=== PATIENT | male | born 1985 | race Caucasian/White ===

== ENCOUNTER → 2023-06-25 | Emergency (ER) | payer BC, OTHER ==
[~2023-06-25] MED LIST: KETOROLAC 30 MG/ML INJ ONE; dexAMETHasone 10 MG/ML VIAL ONE
[2023-06-25 15:49] LABS: Specific Gravity 1.024 (1.005-1.030); Urine Bilirubin NEGATIVE (Negative); Urine Blood Negative (Negative); Urine Clarity Clear (Clear); Urine Color Light-Yellow (Yellow); Urine Glucose NEGATIVE (Negative); Urine Protein NEGATIVE (Negative); Urine Urobilinogen Normal (Normal); Urine pH 6.5 (5.0-7.0)
--- NOTE | 2023-06-25 15:59 | ER ---
Nurse's Notes [facility] Name: Pelon Sterling Age: 38 yrs Sex: Male : 1985 Arrival Date: 06/25/2023 Time: 15:04 Bed 11 Private MD: Diagnosis: Low back pain Presentation: 06/25 15:11 Chief complaint: Patient states: SEVERE LOWER BACK PAIN WITH STANDING. STATES PAIN db RADIATES DOWN RIGHT LEG. AMBULATORY IN TRIAGE. Coronavirus screen: Client denies travel out of the [place] in the last 14 days. At this time, the client does not indicate any symptoms associated with coronavirus-19. Ebola Screen: Patient negative for fever greater than or equal to 101.5 degrees Fahrenheit, and additional compatible Ebola Virus Disease symptoms Patient denies exposure to infectious person. Patient denies travel to an Ebola-affected area in the 21 days before illness onset. No symptoms or risks identified at this time. Initial Sepsis Screen: Does the patient meet any 2 criteria? No. Patient's initial sepsis screen is negative. Does the patient have a suspected source of infection? No. Patient's initial sepsis screen is negative. Risk Assessment: Do you want to hurt yourself or someone else? Patient reports no desire to harm self or others. Onset of symptoms was June 25, 2023. 15:11 Method Of Arrival: Ambulatory db 15:11 Acuity: RADHA 3 db Triage Assessment: 15:11 General: Appears in no apparent distress. comfortable, Behavior is calm, cooperative. db Pain: Complains of pain in back Pain radiates to right leg. Neuro: Level of Consciousness is awake, alert, obeys commands, Oriented to person, place, time, situation, Speech is normal. Respiratory: Airway is patent Respiratory effort is even, unlabored, Respiratory pattern is regular, symmetrical. Historical: - Allergies: 15:12 No Known Allergies; db - PMHx: 15:12 Seizures; db - Immunization history:: Adult Immunizations unknown. - Social history:: Smoking status: Patient denies any tobacco usage or history of. Screenin:23 [facility] ED Fall Risk Assessment (Adult) History of falling in the last 3 months, db including since admission No falls in past 3 months (0 pts) Confusion or Disorientation No (0 pts) Intoxicated or Sedated No (0 pts) Impaired Gait No (0 pts) Mobility Assist Device Used No (0 pt) Altered Elimination No (0 pt) Score/Fall Risk Level 0 - 2 = Low Risk Oriented to surroundings, Maintained a safe environment. Abuse screen: Denies threats or abuse. Denies injuries from another. Nutritional screening: No deficits noted. Tuberculosis screening: No symptoms or risk factors identified. Assessment: 15:23 Reassessment: Patient appears in no apparent distress at this time. Patient and/or db family updated on plan of care and expected duration. Pain level reassessed. Patient is alert, oriented x 3, equal unlabored respirations, skin warm/dry/pink. General: Appears in no apparent distress. comfortable, Behavior is calm, cooperative. Pain: Complains of pain in right leg and back. Neuro: Level of Consciousness is awake, alert, obeys commands, Oriented to person, place, time, situation. 15:45 Reassessment: Patient appears in no apparent distress at this time. Patient and/or ph family updated on plan of care and expected duration. Pain level reassessed. Patient is alert, oriented x 3, equal unlabored respirations, skin warm/dry/pink. Vital Signs: 15:11 BP 152 / 95; Pulse 86; Resp 18; Temp 98.2; Pulse Ox 100% ; Weight 113.4 kg; Height 5 db ft. 11 in. ; 15:11 Body Mass Index 34.87 (113.40 kg, 180.34 cm) db ED Course: 15:07 Patient arrived in ED. im 15:07 [facility]C [facility]. kb 15:07 Tavo Eubanks DO is Attending Physician. kb 15:12 Triage completed. db 15:13 Arm band placed on Patient placed in an exam room. db 15:19 Kimberlee Coronado, RN is Primary Nurse. ph 15:24 No provider procedures requiring assistance completed. db 15:45 Urinalysis w/ reflexes Sent. ph 16:21 Patient has correct armband on for positive identification. Bed in low position. Call light in reach. Side rails up X 1. 16:25 Patient did not have IV access during this emergency room visit. ph Administered Medications: 15:20 Drug: Ketorolac IM 30 mg IM once Route: IM; Site: right deltoid; db 16:25 Follow up: Response: No adverse reaction ph 15:22 Drug: Dexamethasone IM 10 mg IM once Route: IM; Site: left deltoid; db 16:25 Follow up: Response: No adverse reaction ph Medication: 15:23 VIS not applicable for this client. db Outcome: 15:58 Discharge ordered by . kb 16:21 Discharged to home ambulatory, with significant other, ph 16:21 Condition: good 16:21 Discharge instructions given to patient, Instructed on discharge instructions, follow up and referral plans. medication usage, Demonstrated understanding of instructions, follow-up care, medications, Prescriptions given X 3, 16:25 Patient left the ED. ph Signatures: Claudia Pina, URBAN GARDENING SPECIALIST-C URBAN GARDENING SPECIALIST-Kimberlee Levy RN RN ph America Messina, RN RN db Kitty Sen Corrections: (The following items were deleted from the chart) 15:13 15:11 BP 152 / 95; Pulse 86bpm; Resp 18bpm; Pulse Ox 100%; Temp 98.2F; db db 15:13 15:11 Acuity: RADHA 4 db db
--- NOTE | 2023-06-25 15:59 | EDPHYS ---
Physician Documentation [facility] Name: Pelon Sterling Age: 38 yrs Sex: Male : 1985 Arrival Date: 06/25/2023 Time: 15:04 Bed 11 Private MD: ED Physician Tavo Eubanks HPI: 06/25 16:00 This 38 yrs old Male presents to ER via Ambulatory with complaints of Low Back Pain. kb 16:00 Pt is a 38 year old male who presents with low back pain worse on the right that kb started 2-3 weeks ago and has gotten worse and more constant. Denies urinary symptoms, n/v/d, fever, numbness, tingling. Reports radiation of pain down right thigh. . Historical: - Allergies: 15:12 No Known Allergies; db - PMHx: 15:12 Seizures; db - Immunization history:: Adult Immunizations unknown. - Social history:: Smoking status: Patient denies any tobacco usage or history of. ROS: 15:59 Constitutional: Negative for fever, chills, and weight loss, kb 15:59 Back: Positive for pain at rest, pain with movement, radiated pain, 15:59 All other systems are negative, Exam: 15:59 Constitutional: This is a well developed, well nourished patient who is awake, alert, kb and in no acute distress. Head/Face: Normocephalic, atraumatic. ENT: Moist Mucous membranes Cardiovascular: Regular rate Respiratory: Respirations even and unlabored. No increased work of breathing. Talking in full sentences Abdomen/GI: Soft, non-tender. No distention Skin: Warm, dry with normal turgor. Normal color. MS/ Extremity: Pulses equal, no cyanosis. Neurovascular intact. Full, normal range of motion. Neuro: Awake and alert, GCS 15, oriented to person, place, time, and situation. Moves all extremities. Normal gait. 15:59 Back: pain, that is mild, of the right low back, ROM is normal, normal spinal alignment noted, CVA tenderness, is absent, Vital Signs: 15:11 BP 152 / 95; Pulse 86; Resp 18; Temp 98.2; Pulse Ox 100% ; Weight 113.4 kg; Height 5 db ft. 11 in. ; 15:11 Body Mass Index 34.87 (113.40 kg, 180.34 cm) db MDM: 15:07 Patient medically screened. kb 15:59 Differential diagnosis: arthritis, strain, sciatica, Herniated disc UTI. Data reviewed: kb vital signs, nurses notes. Test considered but Not performed: X-ray: x-ray considered, but pt has no bony tenderness, no injury. Counseling: I had a detailed discussion with the patient and/or guardian regarding the historical points, exam findings, and any diagnostic results supporting the discharge/admit diagnosis, lab results, the need for outpatient follow up, a family practitioner, to return to the emergency department if symptoms worsen or persist or if there are any questions or concerns that arise at home. 06/25 15:14 Order name: Urinalysis w/ reflexes; Complete Time: 15:49 kb Administered Medications: 15:20 Drug: Ketorolac IM 30 mg IM once Route: IM; Site: right deltoid; db 16:25 Follow up: Response: No adverse reaction ph 15:22 Drug: Dexamethasone IM 10 mg IM once Route: IM; Site: left deltoid; db 16:25 Follow up: Response: No adverse reaction ph Disposition: 16:41 I was immediately available on-site in the Emergency Department for consultation in the ms3 care of the patient. Disposition Summary: 06/25/23 15:58 Discharge Ordered Notes: Location: Home kb Condition: Stable kb Diagnosis - Low back pain kb Followup: kb - With: Emergency Department - When: As needed - Reason: Worsening of condition Followup: kb - With: Private Physician - When: 2 - 3 days - Reason: Recheck today's complaints, Continuance of care, Re-evaluation by your physician Discharge Instructions: - Discharge Summary Sheet kb - Acute Back Pain, Adult kb - Musculoskeletal Pain kb Forms: - Medication Reconciliation Form kb - Thank You Letter kb - Antibiotic Education kb - Prescription Opioid Use kb - Patient Portal Instructions kb - Leadership Thank You Letter kb Prescriptions: - Prednisone 20 mg Oral Tablet - take 1 tablet ORAL route once daily for 5 days; 5 tablet; Refills: 0, Product kb Selection Permitted - Diclofenac Sodium 75 mg Oral tablet, delayed release (enteric coated) - take 1 tablet ORAL route 2 times per day As needed; 30 tablet; Refills: 0, kb Product Selection Permitted - orphenadrine citrate 100 mg Oral Tablet Sustained Release - take 1 tablet ORAL route 2 times per day As needed; 20 tablet; Refills: 0, kb Product Selection Permitted Signatures: Dispatcher [employer] Claudia Tena, DRAFTING LAYOUT WORKER-C DRAFTING LAYOUT WORKER-Tavo Vela DO DO ms3 America Messina, RN RN db Kimberlee Coronado RN ph
[2023-06-25 16:51] VITALS: BP 152/95; TEMP 98.2; O2SAT 100
== END ==
LOC: ER 15:04
DX: M54.50 Low back pain, unspecified (principal)
CPT/HCPCS: 81003; J1100

== ENCOUNTER 2025-01-20 06:51 | Emergency (ER) | payer OTHER ==
--- OUTSIDE RECORDS SUMMARY | 2025-01-20 06:56 | XMS REPORT | Continuity of Care Document ---
Author Name Unknown Address [address] [facility] [address] [place] [address] [facility] Address [address] [facility] [address] [place] [address] Care Team Providers Care E Commerce Director Name Role Phone Kyle FISH, Jen Jaramillo Primary Care Physician KALYAN ROLLE Attending Clinician Dulce Arnol Toribio MD Attending Clinician [phone] ARNOL GERMAN Attending Clinician Unavail able ARNOL GERMAN Attending Clinician Unavail able Dorcas Rodrigues LVN Attending Clinician UnavailBhavya Small MA Attending Clinician UnavailArnol Montenegro MD Attending Clinician [phone] Hal Segura MD Attending Clinician [phone] Colleen Mcgrath Attending Clinician [phone] Unknown, Attending Attending Clinician Unavailab COLLEEN Guthrie Attending Clinician Unavailable Doctor Unassigned, [place] Attending Clinician U margotailRENNY Skinner Attending Clinician Unavailable Renny Velazquez DO Attending Clinician [phone] JEN PIZARRO Attending Clinician Gisella Pizarro MD, Jen Jaramillo Attending Clinician [phone] Juan A KAHN, Christopher Attending Clinician Unavailab le Only, Ang Db Test Attending Clinician UnavailGabi SALCIDO, Gerardo Attending Clinician GERARDO BLAIR Attending Clinician Unavailable Payers Payer Name Policy Type Policy Number Effective Date Expirati on Date Source [facility] [id number] 2024 00:00:00 [employer] [id number] 2023 00:00:00 [employer] [id number] [id number] 2022 00:00:00 Problems Condition Name Condition Details Condition Category Status Onset Date Resolution Date Last Treatment Date Treating Clinician Comments Source Paresthesi a Paresthesi a Disease Active 09-17 00:00: 00 [facility] [place] [facility] Cervical radiculopa thy Cervical radiculopa thy Disease Active 09-17 00:00: 00 [facility] [place] Epic Infected sebaceous cyst of skin Infected sebaceous cyst of skin Disease Active 2021-05 2-29 00:00: 00 Amber Seybold - Externa l Seizure disorder Seizure disorder Disease Active 09-07 00:00: 00 Amber Seybold - Externa l Acute pharyngiti s due to other specified organisms Acute pharyngiti s due to other specified organisms Disease Active 09-07 00:00: 00 Amber Seybold - Externa l Seasonal allergic rhinitis due to pollen Seasonal allergic rhinitis due to pollen Disease Active 09-07 00:00: 00 Amber Seybold - Externa l 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, intractabl e, without status epilepticu s 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, intractabl e, without status epilepticu s Disease Active 01-30 00:00: 00 [facility] Postoperat dawson abdominal pain Postoperat dawson abdominal pain Disease Active 2014-05 0 00:00: 00 [facility] Abnormal involuntar y movements Abnormal involuntar y movements Disease Active 09-28 00:00: 00 Melly Morrow No known active problems No known active problems Disease Amber Ruano Allergies, Adverse Reactions, Alerts Allergy Name Allergy Type Status Severity Reaction(s) Onset Date Inactive Date Treating Clinician Comments Source Eslicarb azepine Allergy to substanc e Active 09-17 00:00: 00 Melly Jessica [facility] ESLICARB AZEPINE DRUG INGREDI Active Med Unknown-Cmnt 09-07 00:00: 00 [facility] Eslicarb azepine Propensi ty to adverse reaction s Active Unknown - See comments 09-07 00:00: 00 [facility] Eslicarb azepine Propensi ty to adverse reaction s Active 09-07 00:00: 00 Amber Ruano Eslicarb azepine Propensi ty to adverse reaction s Active 09-07 00:00: 00 Amber Ruano - Externa l NO KNOWN ALLERGIE S Drug Class Active [facility] Aptiom Aptiom Active Moderate Melly Jessica Social History Social Habit Start Date Stop Date Quantity Comments Source Gender identity 2023-07-27 08:15:50 Identifies as male gender (finding) [facility] Exposure to SARS-CoV-2 (event) Not sure Amber mendoza Sexual orientation [facility] Alcoholic beverage intake 2023-11-18 00:00:00 2023-11-18 00:00:00 Current non-drinker of alcohol (finding) [facility] History of Social function 2022-10-17 00:00:00 2022-10-17 00:00:00 [facility] Alcohol intake 2022-05-03 00:00:00 2022-05-03 00:00:00 Lifetime non-drinker (finding) Amber Ruano - External Education 2021-09-07 00:00:00 2021-09-07 00:00:00 17 Amber Ruano - External Tobacco use and exposure 2015-02-22 00:00:00 2015-02-22 00:00:00 Smokeless tobacco non-user [facility] Sex Assigned At 1985 00:00:00 1985 00:00:00 Amber Reinososourav - External Smoking Status Start Date Stop Date Source Never smoked tobacco Melly Morrow Medications Ordered Medication Name Filled Medication Name Start Date Stop Date Current Medication? Ordering Clinician Indication Dosage Frequency Signature (SIG) Comments Components Source lamoTRIgine 200 mg tablet 11-17 00:00: 00 Yes [id number] 200mg Take 1 tablet by mouth in the morning and 1 tablet in the evening. [facility] lamoTRIgine 200 mg tablet 12-15 00:00: 00 11-17 00:00 :00 No [id number] 200mg Take 1 tablet by mouth in the morning and 1 tablet in the evening. [facility] Cetirizine (ZYRTEC) 10 mg capsule 11-17 08:38: 24 11-17 00:00 :00 No 10mg Take 1 capsule by mouth as needed for Allergies. [facility] fexofenadin e 180 mg tablet 11-17 08:38: 12 11-17 00:00 :00 No 180mg Take 1 tablet by mouth in the morning. [facility] phenytoin Extended (DILANTIN) 100 mg capsule 11-17 07:51: 46 11-17 00:00 :00 No 200mg Take 200 mg by mouth 2 (two) times daily. [facility] lamoTRIgine 200 mg tablet 11-17 00:00: 00 12-15 00:00 :00 No 200mg Take 1 tablet by mouth in the morning and 1 tablet in the evening. [facility] lamoTRIgine (LaMICtal) 200 MG tablet lamoTRIgine (LaMICtal) 200 MG tablet 24 00:00: 00 Yes Q.5D TAKE 1 TABLET BY MOUTH TWICE DAILY Melly Morrow mupirocin 2 % ointment 1-14 00:00: 00 Yes [id number] Apply to area(s) 3 (three) times daily. [facility] sulfamethox azole-trime thoprim (BACTRIM DS) 800-160 mg per tablet 14 00:00: 00 11-17 00:00 :00 No [id number] Take 1 tab Po BID x 7 days [facility] lamoTRIgine 200 mg tablet 1-05 00:00: 00 11-17 00:00 :00 No 200mg Take 1 tablet by mouth in the morning and 1 tablet in the evening. [facility] lamoTRIgine 200 mg oral tablet 10-17 16:36: 00 Yes = 1 tab, PO, BID, # 180 tab, 3 Refill(s), Pharmacy: [facility] [place] [id number], 177.8, cm, 10/17/22 11:04:00 CDT, Height, 117.273, kg, 10/17/22 11:04:00 CDT, Weight Melly Jessica lamoTRIgine (LaMICtal) 200 MG tablet lamoTRIgine (LaMICtal) 200 MG tablet 10-17 00:00: 00 10-27 00:00 :00 No = 1 tab, PO, BID, # 180 tab, 3 Refill(s), Pharmacy: [facility] [place] [facility] #[id number], 177.8, cm, 10/17/22 11:04:00 CDT, Height, 117.273, kg, 10/17/22 11:04:00 CDT, Weight Terezaalexis winnie Jessica Epic Fexofenadin e (LIZA) 180 MG oral Tablet 2021-05 14:44: 07 Yes 180mg Take 180 mg by mouth daily Amber zhou Amoxicillin -Pot Clavulanate 875-125 MG oral Tablet 2021-05 00:00: 00 Yes [id number] 1{tbl} Take 1 tablet by mouth 2 times daily Amber zhou Mupirocin (BACTROBAN) 2 % apply externally Ointment 2021-05 00:00: 00 Yes [id number] Apply 1 applicatio n topically 2 times daily Amber zhou Cetirizine HCl 10 MG oral Capsule 09-07 08:26: 44 09-07 00:00 :00 No 10mg Take 10 mg by mouth as needed Amebr Ruano Fexofenadin e (LIZA) 180 MG oral Tablet 09-07 08:26: 29 Yes 180mg Take 180 mg by mouth daily Amber Ruano Amoxicillin -Pot Clavulanate 875-125 MG oral Tablet 09-07 00:00: 00 Yes [id number] 1{tbl} Take 1 tablet by mouth in the morning and 1 tablet in the evening. Amber Ruano Benzonatate (Tessalon Perles) 100 MG oral Capsule 09-07 00:00: 00 Yes [id number] 100mg [id number] 3D Take 1 capsule (100 mg total) by mouth 3 times daily as needed for cough Amber Ruano FLUTICASONE PROPIONATE, NASAL, 50 MCG/ACT nasal Suspension 09-07 00:00: 00 Yes [id number] 50ug Use 1 spray (50 mcg total) in each nostril daily Amber Ruano lamoTRIgine 200 mg oral tablet 09-05 20:05: 00 Yes = 1 tab, PO, BID, # 180 tab, 3 Refill(s), Pharmacy: [facility] #[id number], 177.8, cm, 11/01/20 16:00:00 CDT, Height, 120.909, kg, 11/01/20 16:00:00 CDT, Weight Melly Jessica Cetirizine HCl 10 MG oral Capsule 01-25 16:05: 29 Yes 10mg Take 10 mg by mouth as needed Amber Ruano Lamotrigine 200 MG oral Tablet 01-11 00:00: 00 Yes 1{tbl} Take 1 tablet by mouth 2 times daily Amber Ruano lamotrigine 200 MG Oral Tablet 11-24 23:09: 00 Yes = 1 tab, PO, BID, # 60 tab, 0 Refill(s), Pharmacy: [facility] #[id number], 177.8, cm, 11/01/20 16:00:00 CDT, Height, 120.909, kg, 11/01/20 16:00:00 CDT, Weight Melly Jessica baclofen 10 mg oral tablet 10-08 14:59: 00 Yes 10 mg = 1 tab, PO, Daily, # 30 tab, 3 Refill(s), Pharmacy: [id number] Melly Jessica lamotrigine 200 MG Oral Tablet 2018-05 15:20: 47 Yes = 1 tab, PO, BID, # 60 tab, 5 Refill(s), Pharmacy: [facility] #[id number] Melly Jessica Cetirizine (ZYRTEC) 10 mg capsule 2014-05 20:45: 19 Yes 10mg Take 10 mg by mouth as needed for Allergies. [facility] phenytoin Extended (DILANTIN) 100 mg capsule 2014-05 20:45: 19 Yes 200mg Take 200 mg by mouth 2 (two) times daily. [facility] phenytoin Extended (DILANTIN) 100 mg capsule 2014-05 15:45: 19 Yes 200mg Take 200 mg by mouth 2 (two) times daily. [facility] Cetirizine (ZYRTEC) 10 mg capsule 2014-05 15:45: 19 Yes 10mg Take 10 mg by mouth as needed for Allergies. [facility] Immunizations Ordered Immunization Name Filled Immunization Name Date Status Comments Source Tdap- (Boostrix, Adacel) 2017-01-14 00:00:00 Completed Amber Ruano Tdap- (Boostrix, Adacel) 2017-01-14 00:00:00 Completed Amber Ruano - External TDAP 2017-01-14 00:00:00 Completed Influenza Virus Vaccine, High Dose, Age 65 And Up 2016-03-21 00:00:00 Completed Amber Ruano Influenza Virus Vaccine, High Dose, Age 65 And Up 2016-03-21 00:00:00 Completed Amber Ruano - External Influenza, High-Dose, Trivalent, PF (FLUZONE) 2016-03-21 00:00:00 Completed [facility] Influenza Virus Vaccine, No Preserv, age 6 months and up 2015-02-25 00:00:00 Completed Amber Seybold Influenza Virus Vaccine, No Preserv, age 6 months and up 2015-02-25 00:00:00 Completed Amber ybold Influenza Virus Vaccine, No Preserv, age 6 months and up 2015-02-25 00:00:00 Completed Amber Ruano - External Influenza Virus Vaccine Quad IM 3+ YRS 2015-02-25 00:00:00 Completed [facility] Influenza Virus Vaccine Quad IM 3+ YRS 2015-02-25 00:00:00 Completed [facility] Influenza Virus Vaccine Quad IM 3+ YRS 2015-02-25 00:00:00 Completed [facility] Influenza Virus Vaccine Quad IM 3+ YRS 2015-02-25 00:00:00 Completed [facility] Influenza Virus Vaccine Quad IM 3+ YRS Unknown Completed [facility] Influenza High Dose Unknown Completed [facility] TDAP Unknown Completed [facility] Influenza Virus Vaccine Quad IM 3+ YRS Unknown Completed [facility] Influenza Virus Vaccine Quad IM 3+ YRS Unknown Completed [facility] Influenza Virus Vaccine Quad IM 3+ YRS Unknown Completed [facility] Influenza High Dose Unknown Completed [facility] TDAP Unknown Completed [facility] Vital Signs Vital Name Observation Time Observation Value Comments S ource Systolic blood pressure 2023-11-18 13:31:00 119 mm[Hg] [facility] Diastolic blood pressure 2023-11-18 13:31:00 79 mm[Hg] [facility] Heart rate 2023-11-18 13:31:00 66 /min [facility] Respiratory rate 2023-11-18 13:31:00 18 /min [facility] Body height 2023-11-18 13:31:00 179.1 cm [facility] Body weight 2023-11-18 13:31:00 122.698 kg [facility] BMI 2023-11-18 13:31:00 38.26 kg/m2 [facility] Oxygen saturation in Arterial blood by Pulse oximetry 2023-11-18 13:31:00 98 /min [facility] Systolic blood pressure 2023-05-19 18:55:00 116 mm[Hg] [facility] Diastolic blood pressure 2023-05-19 18:55:00 79 mm[Hg] [place] [facility] Heart rate 2023-05-19 18:55:00 73 /min [facility] Body temperature 2023-05-19 18:55:00 36.94 Frida [facility] Respiratory rate 2023-05-19 18:55:00 12 /min [facility] Body height 2023-05-19 18:55:00 179.1 cm [facility] Body weight 2023-05-19 18:55:00 118.842 kg [facility] BMI 2023-05-19 18:55:00 37.06 kg/m2 [facility] Oxygen saturation in Arterial blood by Pulse oximetry 2023-05-19 18:55:00 97 /min [place] [facility] Systolic blood pressure 2022-05-03 20:43:00 121 mm[Hg] Amber Seybo ld - External Diastolic blood pressure 2022-05-03 20:43:00 77 mm[Hg] Amber Seybo ld - External Heart rate 2022-05-03 20:43:00 89 /min Kelse y Seybold - External Body temperature 2022-05-03 20:43:00 36.33 Frida Amber Reisybold - External Respiratory rate 2022-05-03 20:43:00 14 /min Amber Reisybold - External Body height 2022-05-03 20:43:00 177.8 cm Rubi ey Seybold - External Body weight 2022-05-03 20:43:00 113.853 kg Rubi ey Seybold - External BMI 2022-05-03 20:43:00 36.01 kg/m2 Rubi ey Seybold - External Oxygen saturation in Arterial blood by Pulse oximetry 2022-05-03 20:43:00 99 /min Amber Seybo ld - External Systolic blood pressure 2021-09-07 13:09:00 127 mm[Hg] Amber Seybo ld Diastolic blood pressure 2021-09-07 13:09:00 76 mm[Hg] Amber Seybo ld Heart rate 2021-09-07 13:09:00 72 /min Kelse y Seybold Body temperature 2021-09-07 13:09:00 36.44 Frida Amber Reisybold Respiratory rate 2021-09-07 13:09:00 14 /min Amber Reisybold Body height 2021-09-07 13:09:00 177.8 cm Rubi johnson Seybold Body weight 2021-09-07 13:09:00 116.937 kg Rubi johnson Seybold BMI 2021-09-07 13:09:00 36.99 kg/m2 Rubi johnson Seybold Oxygen saturation in Arterial blood by Pulse oximetry 2021-09-07 13:09:00 99 /min Amber Seybo ld Systolic blood pressure 2021-01-25 21:09:00 130 mm[Hg] Amber Seybo ld Diastolic blood pressure 2021-01-25 21:09:00 79 mm[Hg] Amber Seybo ld Heart rate 2021-01-25 21:09:00 97 /min Kel y ybsourav Body temperature 2021-01-25 21:09:00 36.56 Frida Amber Reisybold Respiratory rate 2021-01-25 21:09:00 14 /min Amber Ruano Body height 2021-01-25 21:09:00 177.8 cm Rubi johnson Seybold Body weight 2021-01-25 21:09:00 122.018 kg Rubi johnson Seybold BMI 2021-01-25 21:09:00 38.60 kg/m2 Rubi johnson Seybold Systolic (mm Hg) 2022-10-17 15:36:00 [facility] Diastolic (mm Hg) 2022-10-17 15:36:00 [facility] [place] Heart Rate 2022-10-17 15:36:00 [facility] [place] Height 2022-10-17 15:36:00 5 [ft_i] [facility] Weight 2022-10-17 15:36:00 [facility] [place] BMI Calculated 2022-10-17 15:36:00 [facility] Systolic (mm Hg) 2020-11-01 20:33:00 [facility] [place] Diastolic (mm Hg) 2020-11-01 20:33:00 [facility] [place] Heart Rate 2020-11-01 20:33:00 [facility] Respitory Rate 2020-11-01 20:33:00 [facility] Height 2020-11-01 20:33:00 177.8 cm [facility] [place] Weight 2020-11-01 20:33:00 [facility] BMI Calculated 2020-11-01 20:33:00 [facility] Systolic (mm Hg) 2020-05-03 21:10:00 [facility] Diastolic (mm Hg) 2020-05-03 21:10:00 [facility] [place] Heart Rate 2020-05-03 21:10:00 [facility] Respitory Rate 2020-05-03 21:10:00 [facility] Height 2020-05-03 21:10:00 177.8 cm [facility] [place] Weight 2020-05-03 21:10:00 [facility] BMI Calculated 2020-05-03 21:10:00 [facility] [place] Systolic (mm Hg) 2019-10-09 14:49:00 [facility] [place] Diastolic (mm Hg) 2019-10-09 14:49:00 [facility] [place] Heart Rate 2019-10-09 14:49:00 [facility] Respitory Rate 2019-10-09 14:49:00 [facility] [place] Height 2019-10-09 14:49:00 177.8 cm [facility] Weight 2019-10-09 14:49:00 [facility] BMI Calculated 2019-10-09 14:49:00 [facility] [place] Systolic (mm Hg) 2019-04-24 15:04:00 [facility] [place] Diastolic (mm Hg) 2019-04-24 15:04:00 [facility] [place] Heart Rate 2019-04-24 15:04:00 [facility] Respitory Rate 2019-04-24 15:04:00 [facility] Height 2019-04-24 15:04:00 177.8 cm [facility] [place] Weight 2019-04-24 15:04:00 [facility] [place] BMI Calculated 2019-04-24 15:04:00 [facility] BMI Calculated 2018-10-10 14:19:00 [facility] Respitory Rate 2018-10-10 14:19:00 [facility] [place] Heart Rate 2018-10-10 14:19:00 [facility] [place] Systolic (mm Hg) 2018-10-10 14:19:00 [facility] Diastolic (mm Hg) 2018-10-10 14:19:00 [facility] Weight 2018-10-10 14:19:00 [facility] [place] Height 2018-10-10 14:19:00 177.8 cm [facility] Systolic (mm Hg) 2018-06-13 21:45:00 [facility] Diastolic (mm Hg) 2018-06-13 21:45:00 [facility] Heart Rate 2018-06-13 21:45:00 [facility] [place] Respitory Rate 2018-06-13 21:45:00 [facility] [place] Height 2018-06-13 21:45:00 177.8 cm [facility] [place] Weight 2018-06-13 21:45:00 [facility] BMI Calculated 2018-06-13 21:45:00 [facility] [place] BMI Calculated 2018-05-02 20:12:00 [facility] Height 2018-05-02 20:12:00 177.8 cm [facility] [place] Weight 2018-05-02 20:12:00 [facility] [place] Systolic (mm Hg) 2018-05-02 20:12:00 [facility] [place] Diastolic (mm Hg) 2018-05-02 20:12:00 [facility] Respitory Rate 2018-05-02 20:12:00 [facility] [place] Heart Rate 2018-05-02 20:12:00 [facility] [place] Height 2018-05-01 15:27:00 177.8 cm [facility] [place] Weight 2018-05-01 15:27:00 [facility] BMI Calculated 2018-05-01 15:27:00 [facility] Systolic (mm Hg) 2018-05-01 15:27:00 [facility] Diastolic (mm Hg) 2018-05-01 15:27:00 [facility] Heart Rate 2018-05-01 15:27:00 [facility] [place] Procedures Procedure Date / Time Performed Performing Clinicia n Source ASSIGNMENT OF BENEFITS 2023-05-19 18:49:25 Docto r Unassigned, [place] [facility] ASSIGNMENT OF BENEFITS 2021-01-15 15:42:29 Docto r Unassigned, [place] [facility] Encounters Start Date/Time End Date/Time Encounter Type Admission Type Attending Clinicians Care Facility Care Department Encounter ID Source 2024-11-17 00:00:00 2024-11-17 10:05:[address] [facility] [place] 1.2.840.114 350.1.13.10 4.2.7.2.686 [id number] [facility] 2024-11-17 10:00:00 2024-11-17 10:00:00 Outpatient ARNOL MARTIN [facility] [id number] [facility] 2024-11-17 10:00:00 2024-11-17 10:00:00 Outpatient ARNOL MARTIN [facility] [id number] [facility] 2023-11-18 00:00:00 2024-06-20 07:17:48 [facility] 1..840.114 350.1.13.10 4.2.7.2.686 [id number] [facility] 2023-12-16 00:00:00 2023-12-16 11:02:[address] [facility] [place] 1..840.114 350.1.13.10 4.2.7.2.686 [id number] [facility] 2023-10-18 00:00:00 2023-11-18 23:50:49 Telephone Bhavya Watkins [facility] [place] 1.2.840.114 350.1.13.70 8.2.7.2.686 [id number] Melly Jessica [facility] 2023-11-18 08:40:00 2023-11-18 09:03:35 Outpatient ARNOL MARTIN [facility] [id number] [facility] 2023-11-18 08:40:00 2023-11-18 09:03:35 Office Visit Arnol German [facility] 1.2.840.114 350.1.13.10 4.2.7.2.686 [id number] [facility] 2023-10-27 00:00:00 2023-10-28 14:28:05 Hal Montes 1..840.114 350.1.13.70 8.2.7.2.686 [id number] Melly Jessica [facility] 2023-10-18 09:00:00 2023-10-18 09:00:00 Outpatient MHIE [facility] [id number] Melly Jessica 2023-05-19 12:40:00 2023-05-19 13:00:00 Urgent Care Colleen Victor Unknown, Attending [facility] 1..840.114 350.1.13.10 4.2.7.2.686 [id number] [facility] 2023-05-19 12:40:00 2023-05-19 12:40:00 Outpatient COLLEEN CRAIN [facility] [id number] [facility] 2023-05-19 00:00:00 2023-05-19 00:00:00 Orders Only Doctor Unassigned, [place] [facility] 1..840.114 350.1.13.10 4.2.7.2.686 [id number] [facility] 2022-10-17 15:45:00 2022-10-18 04:59:59 Outpatient [facility] [id number] Melly Jessica 2022-10-17 15:45:00 2022-10-17 15:45:00 Ambulatory Pre-Reg [facility] [id number] Melly Jessica 2022-09-27 18:30:00 2022-09-27 18:30:00 Ambulatory Pre-Reg [facility] [id number] Melly Jessica 2022-05-16 00:00:00 2022-05-16 00:00:00 Outpatient RENNY VELAZQUEZPRIYA RANGEL [id number] Amber [facility] 2022-05-03 14:45:00 2022-05-03 14:45:00 Outpatient RENNY VELAZQUEZ AMBER RANGEL [id number] [facility] 2021-09-13 21:00:00 2021-09-13 21:00:00 Ambulatory Pre-Reg nullFlavo r [facility] [id number] Melly Jessica 2021-09-07 08:15:00 2021-09-07 08:30:00 Office Visit Renny Velazquez 1.2.840.114 350.1.13.13 1.2.7.2.686 [id number] Amber [facility] 2021 00:00:00 2021 00:00:00 Outpatient JEN PIZARRO [id number] Amber [facility] 2021-01-25 16:01:06 2021-01-25 16:31:06 Office Visit Jen Pizarro 1.2.840.114 350.1.13.13 1.2.7.2.686 [id number] [facility] 00:00:00 2021-01-16 00:00:00 Letter (Out) Christopher Velazco [facility] 1.2.840.114 350.1.13.10 4.2.7.2.686 [id number] [facility] 2021-01-15 10:43:24 2021-01-15 10:58:24 Laboratory Only Only, Ang Db Test [facility] 1.2.840.114 350.1.13.10 4.2.7.2.686 [id number] [facility] 2021-01-15 10:45:00 2021-01-15 10:45:00 Outpatient R GERARDO BLAIR [facility] [id number] [facility] 2021-01-15 00:00:00 2021-01-15 00:00:00 Orders Only Doctor Unassigned, [place] [facility] 1.2.840.114 350.1.13.10 4.2.7.2.686 [id number] [facility] 2020-12-01 19:45:00 2020-12-01 19:45:00 Ambulatory Pre-Reg nullFlavo r [facility] [id number] Melly Jessica 2020-11-08 21:00:00 2020-11-09 04:59:59 Outpatient nullFlavo r [facility] [id number] Melly Jessica 2020-11-01 20:45:00 2020-11-02 04:59:59 Outpatient nullFlavo r [facility] [place] [facility] [id number] Melly Adame2020-05-03 21:15:00 2020-05-04 05:59:59 Outpatient nullFlavo r [facility] [place] [facility] [id number] Melly Jessica 2020-04-20 21:45:00 2020-04-20 21:45:00 Ambulatory Pre-Reg nullFlavo r [facility] [place] [facility] [id number] Melly Jessica 2020-04-12 15:30:00 2020-04-12 15:30:00 Ambulatory Pre-Reg nullFlavo r [facility] [place] [id number] Melly Jessica 2020-04-12 15:30:00 2020-04-12 15:30:00 Ambulatory Pre-Reg nullFlavo r [facility] [place] [id number] 08 Melly Jessica 2019-10-09 14:45:00 2019-10-10 04:59:59 Outpatient nullFlavo r [facility] [place] [id number] 07 Melly Jessica 2019-04-24 15:00:00 2019-04-25 05:59:59 Outpatient nullFlavo r [facility] [place] [id number] Melly Jessica 2018-10-10 14:30:00 2018-10-11 04:59:59 Outpatient nullFlavo r [facility] [place] [id number] Melly Jessica 2018-06-13 21:30:00 2018-06-14 05:59:59 Outpatient nullFlavo r [facility] [place] [id number] 04 Melly zhou Jaskaran 2018-05-02 19:45:00 2018-05-03 05:59:59 Outpatient nullFlavo r [facility] [place] [id number] 03 Melly zhou Jaskaran 2018-05-01 15:15:00 2018-05-02 05:59:59 Outpatient nullFlavo r [facility] [place] [id number] 02 Melly zhou Jaskaran 2017-11-22 09:00:00 2017-11-22 09:00:00 Outpatient [facility] IE [id number] 01 Melly zhou Jaskaran 2017-08-20 16:00:00 2017-08-20 16:00:00 Outpatient IE IE [id number] Terezaalexis zhou Jaskaran Results Test Description Test Time Test Comments Results Result [id number] 14:38:00* Test Item Value Reference Range Interpretation Comme nts WBC (test code = WBC) 5.4 3.8-10.8 RBC (test code = RBC) 5.45 4.20-5.80 Hgb (test code = Hgb) 16.1 13.2-17.1 Hct (test code = Hct) 46.4 38.5-50.0 MCV (test code = MCV) 85.1 80.0-100.0 MCH (test code = MCH) 29.5 pg 27.0-33.0 MCHC (test code = MCHC) 34.7 32.0-36.0 RDW (test code = RDW) 12.6 11.0-15.0 Platelet (test code = Platelet) 216 140-400 MPV (test code = MPV) 9.4 7.5-12.5 Neutrophils # (test code = Neutrophils #) [phone] Lymphocytes # (test code = Lymphocytes #) 2020 850-3900 Monocytes # (test code = Monocytes #) 443 200-950 Eosinophils # (test code = Eosinophils #) 103 15-500 Basophils # (test code = Basophils #) 49 <=200 Segs (test code = Segs) 51.6 Lymphocytes (test code = Lymphocytes) 37.4 Monocytes (test code = Monocytes) 8.2 Eosinophils (test code = Eosinophils) 1.9 Basophils (test code = Basophils) 0.9 [facility] [id number] 13:15:00* Test Item Value Reference Range Interpretation Comme nts Glucose Lvl (test code = Glucose Lvl) 105 65-99 BUN (test code = BUN) 18 7-25 Creatinine Lvl (test code = Creatinine Lvl) 1.08 0.60-1.35 eGFR NON-AFR. TRISTANIAN (test code = eGFR NON-AFR. TRISTANIAN) 90 eGFR (test code = eGFR ) 104 B/C Ratio (test code = B/C Ratio) NOT APPLICABLE 6-22 Sodium Lvl (test code = Sodi um Lvl) 142 135-146 Potassium Lvl (test code = Potassium Lvl) 4.4 3.5-5.3 Chloride Lvl (test code = Chloride Lvl) 107 98-110 CO2 (test code = CO2) 27 20-32 Calcium Lvl (test code = Calcium Lvl) 9.2 8.6-10.3 Total Protein (test code = Total Protein) 6.8 6.1-8.1 Albumin Lvl (test code = Albumin Lvl) 4.1 3.6-5.1 Globulin (test code = Globulin) 2.7 1.9-3.7 A/G Ratio (test code = A/G Ratio) 1.5 1.0-2.5 Bili Total (test code = Bili Total) 0.5 0.2-1.2 Alk Phos (test code = Alk Phos) 87 36-130 ASPARTATE TRANSAMINASE (test code = ASPARTATE TRANSAMINASE) 25 10-40 ALANINE AMINOTRANSFERASE (te st code = ALANINE AMINOTRANSFERASE) 33 9-46 [id number] 13:15:00* Test Item Value Reference Range Interpretation Comme nts WBC X 10x3 (test code = WBC X 10x3) 5.6 3.8-10.8 RBC X 10x6 (test code = RBC X 10x6) 5.24 4.20-5.80 Hgb (test code = Hgb) 15.5 13.2-17.1 Hct (test code = Hct) 44.7 38.5-50.0 MCV (test code = MCV) 85.3 80.0-100.0 MCH (test code = MCH) 29.6 pg 27.0-33.0 MCHC (test code = MCHC) 34.7 32.0-36.0 RDW (test code = RDW) 12.7 11.0-15.0 Platelet (test code = Platelet) 217 140-400 MPV (test code = MPV) 9.8 7.5-12.5 Neutrophils # (test code = Neutrophils #) 2778 5819-3820 Lymphocytes # (test code = Lymphocytes #) 2178 850-3900 Monocytes # (test code = Monocytes #) 459 200-950 Eosinophils # (test code = Eosinophils #) 118 15-500 Basophils # (test code = Basophils #) 67 <=200 Segs (test code = Segs) 49.6 Lymphocytes (test code = Lymphocytes) 38.9 Monocytes (test code = Monocytes) 8.2 Eosinophils (test code = Eosinophils) 2.1 Basophils (test code = Basophils) 1.2 [facility] [id number] 14:24:00* Test Item Value Reference Range Interpretation Comme nts ASPARTATE TRANSAMINASE (test code = ASPARTATE TRANSAMINASE) 19 10-40 Alk Phos (test code = Alk Phos) 81 40-115 Bili Total (test code = Bili Total) 0.5 0.2-1.2 ALANINE AMINOTRANSFERASE (te st code = ALANINE AMINOTRANSFERASE) 27 9-46 Albumin Lvl (test code = Albumin Lvl) 4.0 3.6-5.1 Total Protein (test code = Total Protein) 6.7 6.1-8.1 Calcium Lvl (test code = Calcium Lvl) 9.0 8.6-10.3 CO2 (test code = CO2) 25 20-32 Sodium Lvl (test code = Sodi um Lvl) 137 135-146 Potassium Lvl (test code = Potassium Lvl) 4.4 3.5-5.3 Chloride Lvl (test code = Chloride Lvl) 105 98-110 A/G Ratio (test code = A/G Ratio) 1.5 1.0-2.5 Globulin (test code = Globulin) 2.7 1.9-3.7 B/C Ratio (test code = B/C Ratio) NOT APPLICABLE 6-22 eGFR (test code = eGFR ) 109 BUN (test code = BUN) 18 7-25 Creatinine Lvl (test code = Creatinine Lvl) 1.05 0.60-1.35 eGFR NON-AFR. TRISTANIAN (test code = eGFR NON-AFR. TRISTANIAN) 94 Glucose Lvl (test code = Glucose Lvl) 96 65-99 [id number] 14:24:00* Test Item Value Reference Range Interpretation Comme nts Segs (test code = Segs) 53.1 Basophils # (test code = Basophils #) 71 <=200 Eosinophils # (test code = Eosinophils #) 138 15-500 Monocytes # (test code = Monocytes #) 449 200-950 Basophils (test code = Basophils) 1.4 Monocytes (test code = Monocytes) 8.8 Eosinophils (test code = Eosinophils) 2.7 Lymphocytes (test code = Lymphocytes) 34.0 Neutrophils # (test code = Neutrophils #) 2708 6982-9730 MPV (test code = MPV) 10.0 7.5-12.5 Platelet (test code = Platelet) 227 140-400 RDW (test code = RDW) 12.7 11.0-15.0 MCHC (test code = MCHC) 34.9 32.0-36.0 Lymphocytes # (test code = Lymphocytes #) 6669 154-4234 WBC X 10x3 (test code = WBC X 10x3) 5.1 3.8-10.8 MCH (test code = MCH) 28.9 pg 27.0-33.0 MCV (test code = MCV) 82.9 80.0-100.0 Hct (test code = Hct) 44.7 38.5-50.0 Hgb (test code = Hgb) 15.6 13.2-17.1 RBC X 10x6 (test code = RBC X 10x6) 5.39 4.20-5.80 [id number] 14:24:00* Test Item Value Reference Range Interpretation Comme nts Lamotrigine Lvl (test code = Lamotrigine Lvl) 5.0 4.0-18.0 [facility] Notes Date/Time Note Provider Source 2024-11-17 10:00:42 In clinic assessment due to pt not having a referral for scheduled visit today. BP 116/83 HR 72 O2 99% Respirations 18 Pain 0/10 Pt reports he is stable on Lamictal 200mg BID and has not had a seizure in 8-9 years. Today was just a yearly f/u. Per Dr. German, we will send in a 1 month supply of Lamictal to allow pt time to get referral. Pt is being rescheduled for f/u appt. Requested Prescriptions Signed Prescriptions Disp Refills lamoTRIgine 200 mg tablet 60 tablet 0 Sig: Take 1 tablet by mouth in the morning and 1 tablet in the evening. Authorizing Provider: ARNOL GERMAN Ordering User: ARLENE KING [facility] 2023-12-16 10:58:49 E prescribe was not received by the pharmacy the day of [facility]. Resending medication. [facility] 11/18/23 NOV 11/17/24 Requested Prescriptions Signed Prescriptions Disp Refills lamoTRIgine 200 mg tablet 60 tablet 10 Sig: Take 1 tablet by mouth in the morning and 1 tablet in the evening. Authorizing Provider: ARNOL GERMAN Ordering User: ARLENE KING [facility]2024-06-24 14:28:15* [id number] 14:28:15 [place] [id number] 14:28:02 Medication filled, please call patient and have them schedule a follow up. [facility]2024-06-14 09:00:59 Patient had an appointment scheduled for 10/18/23 however insurance is out of network and we are no longer able to see the patient. Patient asked what he should do in the meantime for his medications until he is able to find a new Neurologist. Y Jessica
[2025-01-20 07:37] LABS: Absolute Lymphocytes (CBC) 1.7 K/uL (0.7-4.9); Hematocrit 44.6 % (39.6-49.0); Hemoglobin 15.3 g/dL (13.6-17.9); MCH 28.8 pg (27.0-35.0); MCHC 34.4 g/dL (32.0-36.0); MCV 83.9 fL (80-100); MPV 7.6 fL (7.6-11.3); Nucleated RBC Absolute Count 0.0 (0-0); Nucleated Red Blood Cells % 0.1 % (0-0); RBC Red Blood Cell Count 5.31 M/uL (4.33-5.43); White Blood Count 5.50 thou/uL (4.3-10.9)
[2025-01-20 07:57] LABS: ALT/SGPT 60.0 U/L (16-61); AST/SGOT 50.0 U/L (15-37); Albumin 3.5 g/dL (3.4-5.0); Albumin/Globulin Ratio 1.0 (1.1-1.8); Alkaline Phosphatase 100.0 U/L (45-117); Anion Gap 9.0 mEq/L (5.0-15.0); BUN Blood Urea Nitrogen 14.0 mg/dL (7-18); Bilirubin Indirect, Calculated 0.4 mg/dL (0.2-0.8); Globulin 3.6 g/dL (2.3-3.5); Glucose Level 116.0 mg/dL (74-106); Lipase 29.0 U/L (13-75); Potassium 4.0 mEq/L (3.5-5.1); Troponin High Sensitivity 3.9 pg/mL (<58.9)
--- NOTE | 2025-01-20 08:06 | RAD REPORT ---
EXAMINATION: ONE VIEW CHEST XR CLINICAL INDICATION: Male, 39 years old.,CHEST PAIN TECHNIQUE: Frontal chest projection is submitted. Examination is limited by patient positioning and t echnique. COMPARISON: 06/26/2014 FINDINGS: The lungs are well inflated and clear. No pneumothorax or sizable effusion. The heart is normal in s ize. Mediastinal contours are unremarkable. IMPRESSION: No acute intrathoracic abnormalities.
--- NOTE | 2025-01-20 08:20 | EDPHYS ---
Physician Documentation [facility] Name: Pelon Sterling Age: 39 yrs Sex: Male : 1985 Arrival Date: 01/20/2025 Time: 06:51 Bed 6 Private MD: ED Physician Fozia Johns HPI: 01/20 07:33 This 39 yrs old Male presents to ER via Ambulatory with complaints of Chest Pressure, sp3 Shortness Of Breath. 07:33 39-year-old male with history of seizures now presents with chief complaint chest pain sp3 substernal associated with mild shortness of breath. Patient's symptoms are now fully resolved. Patient states that as he was getting ready for work he started having chest pressure substernally and shortness of breath. He denies any other associated symptoms except mild nausea. He does state he has routine esophageal reflux but is never had esophageal spasm. He denies any headache, neck pain, back pain, vomiting, diarrhea, trauma, or any other signs or symptoms on ROS at this time.. Historical: - Allergies: 07:01 No Known Allergies; iw - Home Meds: 07:01 lamotrigine oral 2 times per day [Active]; iw - PMHx: 07:01 Seizures; iw - PSHx: 07:01 Cholecystectomy; iw - Immunization history:: Adult Immunizations up to date. - Infectious Disease History:: Denies. - Social history:: Smoking status: Patient denies any tobacco usage or history of. ROS: 07:34 Constitutional: Negative for fever, chills, and weight loss, Eyes: Negative for injury, sp3 pain, redness, and discharge, Neck: Negative for injury, pain, and swelling, Abdomen/GI: Negative for abdominal pain, nausea, vomiting, diarrhea, and constipation, Back: Negative for injury and pain, MS/Extremity: Negative for injury and deformity, Skin: Negative for injury, rash, and discoloration, Neuro: Negative for headache, weakness, numbness, tingling, and seizure, Psych: Negative for depression, anxiety, suicide ideation, homicidal ideation, and hallucinations, Allergy/Immunology: Negative for hives, rash, and allergies, Endocrine: Negative for neck swelling, polydipsia, polyuria, polyphagia, and marked weight changes, Hematologic/Lymphatic: Negative for swollen nodes, abnormal bleeding, and unusual bruising, 07:34 All other systems are negative, Exam: 07:34 Constitutional: This is a well developed, well nourished patient who is awake, alert, sp3 and in no acute distress. Head/Face: Normocephalic, atraumatic. Eyes: Pupils equal round and reactive to light, extra-ocular motions intact. Lids and lashes normal. Conjunctiva and sclera are non-icteric and not injected. Cornea within normal limits. Periorbital areas with no swelling, redness, or edema. Neck: Trachea midline, no thyromegaly or masses palpated, and no cervical lymphadenopathy. Supple, full range of motion without nuchal rigidity, or vertebral point tenderness. No Meningismus. Chest/axilla: Normal chest wall appearance and motion. Nontender with no deformity. No lesions are appreciated. Cardiovascular: Regular rate and rhythm with a normal S1 and S2. No gallops, murmurs, or rubs. Normal PMI, no JVD. No pulse deficits. Respiratory: Lungs have equal breath sounds bilaterally, clear to auscultation and percussion. No rales, rhonchi or wheezes noted. No increased work of breathing, no retractions or nasal flaring. Abdomen/GI: Soft, non-tender, with normal bowel sounds. No distension or tympany. No guarding or rebound. No evidence of tenderness throughout. Back: No spinal tenderness. No costovertebral tenderness. Full range of motion. Skin: Warm, dry with normal turgor. Normal color with no rashes, no lesions, and no evidence of cellulitis. MS/ Extremity: Pulses equal, no cyanosis. Neurovascular intact. Full, normal range of motion. Neuro: Awake and alert, GCS 15, oriented to person, place, time, and situation. Cranial nerves II-XII grossly intact. Motor strength 5/5 in all extremities. Sensory grossly intact. Cerebellar exam normal. Normal gait. Psych: Awake, alert, with orientation to person, place and time. Behavior, mood, and affect are within normal limits. 07:34 ECG was reviewed by the Attending Physician. EKG demonstrates normal sinus rhythm at 67 bpm with normal intervals, normal QRS, normal axis and normal ST/T-segment's without evidence of acute ischemia. Vital Signs: 07:00 BP 137 / 89; Pulse 74; Resp 16; Pulse Ox 99% on R/A; Weight 122.47 kg; Height 5 ft. 10 iw in. ; Pain 5/10; 08:30 BP 120 / 7; Pulse 67; Resp 15; Pulse Ox 97% ; bp 07:00 Body Mass Index 38.74 (122.47 kg, 177.8 cm) iw 07:00 Pain Scale: Adult iw MDM: 07:07 Medical Screening Exam initiated sp3 07:35 Data reviewed: vital signs, nurses notes, lab test result(s), EKG, radiologic studies. sp3 ED course: 39-year-old male with chest pain now resolved. Differential diagnosis includes esophageal spasm, esophageal reflux, and to a lesser degree acute coronary syndrome, PE, other thoracic pathology, pleurisy, pneumonia, bronchitis. Workup will include EKG which is normal, chest x-ray and general labs including troponin and D-dimer. If initial workup negative we will safely discharge patient home as the symptoms are resolved.. 08:17 ED course: Full workup negative including troponin and D-dimer. Will discharge patient sp3 on Protonix and follow-up with PCP.. 01/20 07:08 Order name: Basic Metabolic Panel; Complete Time: 08:14 3 01/20 07:08 Order name: CBC with Diff; Complete Time: 08:14 3 01/20 07:08 Order name: D-Dimer; Complete Time: 08:17 sp3 01/20 07:08 Order name: LFT's; Complete Time: 08:14 3 01/20 07:08 Order name: Troponin HS; Complete Time: 08:14 3 01/20 07:08 Order name: Lipase; Complete Time: 08:14 3 01/20 07:08 Order name: XRAY Chest (1 view); Complete Time: 08:14 3 01/20 07:08 Order name: EKG; Complete Time: 07:09 3 01/20 07:08 Order name: Cardiac monitoring; Complete Time: 07:27 3 01/20 07:08 Order name: EKG - Nurse/Tech; Complete Time: 07:15 3 01/20 07:08 Order name: IV Saline Lock; Complete Time: 07:27 3 01/20 07:08 Order name: Labs collected and sent; Complete Time: 07:27 3 01/20 07:08 Order name: O2 Per Protocol; Complete Time: 07:27 sp3 01/20 07:08 Order name: O2 Sat Monitoring; Complete Time: :27 sp3 Administered Medications: No medications were administered Disposition Summary: 01/20/25 08:19 Discharge Ordered Notes: Location: Home sp3 Condition: Stable sp3 Diagnosis - Chest pain, esophageal reflux sp3 Followup: sp3 - With: Private Physician - When: Upon discharge from the Emergency Department - Reason: Continuance of care Discharge Instructions: - Discharge Summary Sheet sp3 - Nonspecific Chest Pain, Adult sp3 - Esophageal Spasm sp3 Forms: - Medication Reconciliation Form sp3 - Antibiotic Education sp3 - Prescription Opioid Use sp3 - Patient Portal Instructions sp3 - Leadership Thank You Letter sp3 - Work release form ty Prescriptions: - Protonix 40 mg Oral Tablet - take 1 tablet ORAL route once daily; 30 tablet; Refills: 0, Product Selection sp3 Permitted Signatures: Dispatcher [employer] Akanksha Garcia RN RN iw Peltier, Brian, RN RN bp Patel, Setul, MD MD sp3
--- NOTE | 2025-01-20 08:20 | ER ---
Nurse's Notes [facility] Name: Pelon Sterling Age: 39 yrs Sex: Male : 1985 Arrival Date: 01/20/2025 Time: 06:51 Bed 6 Private MD: Diagnosis: Chest pain, esophageal reflux Presentation: 01/20 07:00 Chief complaint: Patient states: woke up with chest pain and SOB, hurt for an hour, got iw better then started again and now it's worse, feels like something was tight and pressure and the SOB. Coronavirus screen: At this time, the client does not indicate any symptoms associated with coronavirus-19. Ebola Screen: No symptoms or risks identified at this time. Initial Sepsis Screen: Does the patient meet any 2 criteria? No. Patient's initial sepsis screen is negative. Does the patient have a suspected source of infection? No. Patient's initial sepsis screen is negative. Risk Assessment: Do you want to hurt yourself or someone else? Patient reports no desire to harm self or others. 07:00 Method Of Arrival: Ambulatory iw 07:00 Acuity: RADHA 2 iw Triage Assessment: 07:00 General: Appears in no apparent distress. Behavior is appropriate for age. Pain: bp Complains of pain in chest. EENT: No deficits noted. Neuro: No deficits noted. Cardiovascular: Rhythm is sinus rhythm. Respiratory: No deficits noted. GI: No signs and/or symptoms were reported involving the gastrointestinal system. : No signs and/or symptoms were reported regarding the genitourinary system. Derm: No deficits noted. Musculoskeletal: No deficits noted. Historical: - Allergies: 07:01 No Known Allergies; iw - Home Meds: 07:01 lamotrigine oral 2 times per day [Active]; iw - PMHx: 07:01 Seizures; iw - PSHx: 07:01 Cholecystectomy; iw - Immunization history:: Adult Immunizations up to date. - Infectious Disease History:: Denies. - Social history:: Smoking status: Patient denies any tobacco usage or history of. Screenin:30 [facility] ED Fall Risk Assessment (Adult) History of falling in the last 3 months, bp including since admission No falls in past 3 months (0 pts) Confusion or Disorientation No (0 pts) Intoxicated or Sedated No (0 pts) Impaired Gait No (0 pts) Mobility Assist Device Used No (0 pt) Altered Elimination No (0 pt) Score/Fall Risk Level 0 - 2 = Low Risk Oriented to surroundings. Abuse screen: Denies threats or abuse. Denies injuries from another. Nutritional screening: No deficits noted. Tuberculosis screening: No symptoms or risk factors identified. Assessment: 07:00 General: SEE TRIAGE NOTE. bp Vital Signs: 07:00 BP 137 / 89; Pulse 74; Resp 16; Pulse Ox 99% on R/A; Weight 122.47 kg; Height 5 ft. 10 iw in. ; Pain 5/10; 08:30 BP 120 / 7; Pulse 67; Resp 15; Pulse Ox 97% ; bp 07:00 Body Mass Index 38.74 (122.47 kg, 177.8 cm) iw 07:00 Pain Scale: Adult iw ED Course: 06:55 Patient arrived in ED. gm2 07:01 Triage completed. iw 07:02 Fozia Johns MD is Attending Physician. sp3 07:04 David Valderrama, CRISS is Primary Nurse. bp 07:15 Arm band placed on. EKG completed in triage. Results shown to MD. iw 07:27 Initial lab(s) drawn, by me, sent to lab. Inserted saline lock: 20 gauge in right bp forearm, using aseptic technique. Blood collected. Flushed with 10 mL NS. 07:32 XRAY Chest (1 view) In Process Unspecified. EDMS 08:30 Patient has correct armband on for positive identification. Provided Education on: NA. bp Client placed on continuous cardiac and pulse oximetry monitoring. NIBP monitoring applied. dumpster operator on. Pulse ox on. NIBP on. 08:30 No provider procedures requiring assistance completed. IV discontinued, intact, bp bleeding controlled, No redness/swelling at site. Pressure dressing applied. Patient maintains SpO2 saturation greater than 95% on room air. Administered Medications: No medications were administered Medication: 08:30 VIS not applicable for this client. bp Outcome: 08:19 Discharge ordered by . sp3 08:30 Discharged to home ambulatory, bp 08:30 Condition: stable 08:30 Discharge instructions given to patient, Instructed on discharge instructions, follow up and referral plans. medication usage, Demonstrated understanding of instructions, follow-up care, medications, Prescriptions given X 1, 08:32 Patient left the ED. bp Signatures: Dispatcher [employer] Akanksha Garcia, RN RN iw David Valderrama RN RN bp Fozia Johns MD MD sp3 Feli Connor 2 Corrections: (The following items were deleted from the chart) 07:02 07:00 Pulse 74bpm; Resp 16bpm; Pulse Ox 99% RA; iw iw
[2025-01-20 08:53] VITALS: BP 120/7; O2SAT 97
== END 2025-01-20 08:32 | disposition home or self-care (01) ==
LOC: ER 06:51
DX: K21.9 Gastro-esophageal reflux disease without esophagitis (principal)
CPT/HCPCS: 36415; 71045; 80048; 80076; 83690; 84484; 85025; 85379; 93005; 99284